=== PATIENT | female | born 1985 | race Caucasian/White ===

== ENCOUNTER 2017-05-09 18:31 | Emergency (ER) | payer MEDICAID ==
[~2017-05-09] VITALS: Ht 165.1 cm; Wt 63.6 kg
[2017-05-09 18:39] VITALS: BP 138/91; TEMP 98.6
[2017-05-09] MEDS ORDERED: BIRTH CONTROL (18:45)
[2017-05-09] MEDS ORDERED: PROZAC 20MG20 MG PO (18:45)
[2017-05-09 20:12] VITALS: PULSE 65
== END 2017-05-09 20:21 | disposition home or self-care (01) ==
LOC: COL.ER 18:31
DX: Z20.3 Contact with and (suspected) exposure to rabies (principal); Z23 Encounter for immunization

== ENCOUNTER → 2017-05-12 | Outpatient (CLI) | payer MEDICAID ==
[~2017-05-12] VITALS: Ht 165.1 cm; Wt 63.6 kg
[~2017-05-12] MED LIST: BIRTH CONTROL; PROZAC 20MG20 MG PO
[2017-05-12 16:36] VITALS: BP 117/59; PULSE 75; TEMP 98.5
== END ==
LOC: COL.ER 15:56
DX: Z23 Encounter for immunization (principal); Z20.3 Contact with and (suspected) exposure to rabies